=== PATIENT | female | born 1955 | race Caucasian/White ===

== ENCOUNTER → 2020-12-08 | Outpatient (CLI) | payer MEDICARE, SELFPAY ==
[2020-12-08 09:25] LABS: HEMOGLOBIN 13.6 gm/dl (12.3-15.3); RED BLOOD COUNT 4.59 M/UL (4.00-5.10); WHITE BLOOD COUNT 4.1 K/UL (4.5-11.0)
[2020-12-08 09:49] LABS: BUN/CREATININE RATIO 23 (0-10)
== END ==
LOC: LAB 08:55
PROVIDERS: Family Medicine
DX: M54.42 Lumbago with sciatica, left side (principal); R53.83 Other fatigue; I10 Essential (primary) hypertension; Z13.220 Encounter for screening for lipoid disorders; E55.9 Vitamin D deficiency, unspecified; D68.9 Coagulation defect, unspecified; D68.2 Hereditary deficiency of other clotting factors; M51.37 Other intervertebral disc degeneration, lumbosacral region
CPT/HCPCS: 36415; 72100; 80053; 80061; 84439; 84443; 84481; 85027

== ENCOUNTER → 2020-12-31 | Outpatient (CLI) | payer MEDICARE, SELFPAY | LOC: KOH-I 09:03 | DX: M79.605 Pain in left leg (principal); D68.2 Hereditary deficiency of other clotting factors; D68.9 Coagulation defect, unspecified; I82.592 Chronic embolism and thrombosis of other specified deep vein of left lower extremity; M79.662 Pain in left lower leg | CPT/HCPCS: 93970 ==

== ENCOUNTER 2021-01-28 19:23 | Emergency (ER) | payer OTHER, BC | END 2021-01-28 22:40 | disposition home or self-care (01) | LOC: ER1 19:23 | DX: S16.1XXA Strain of muscle, fascia and tendon at neck level, initial encounter (principal); S09.90XA Unspecified injury of head, initial encounter; V49.50XA Passenger injured in collision with unspecified motor vehicles in traffic accident, initial encounter; Y92.410 Unspecified street and highway as the place of occurrence of the external cause | CPT/HCPCS: 70450; 71045; 71250; 72125; 99284 ==

== ENCOUNTER → 2021-02-15 | Outpatient (CLI) | payer MEDICARE | LOC: KOH-I 10:28 | DX: J98.11 Atelectasis (principal); J18.9 Pneumonia, unspecified organism | CPT/HCPCS: 71046 ==

== ENCOUNTER → 2021-02-23 | Outpatient (CLI) | payer MEDICARE | LOC: KOH-I 11:16 | DX: J47.9 Bronchiectasis, uncomplicated (principal); R91.8 Other nonspecific abnormal finding of lung field | CPT/HCPCS: 71250 ==

== ENCOUNTER → 2021-06-28 | Outpatient (CLI) | payer MEDICARE | LOC: CT 10:30 | DX: J47.9 Bronchiectasis, uncomplicated (principal); R91.8 Other nonspecific abnormal finding of lung field | CPT/HCPCS: 71250 ==

== ENCOUNTER → 2021-12-13 | Outpatient (CLI) | payer MEDICARE | LOC: KOH-I 12:35 | DX: R91.8 Other nonspecific abnormal finding of lung field (principal) | CPT/HCPCS: 71250 ==